=== PATIENT | female | born 1980 | race Caucasian/White ===

== ENCOUNTER → 2023-07-29 09:24 | Outpatient (REF) | payer OTHER, SELFPAY | LOC: WDC 09:24 | PROVIDERS: ATTENDING PHYSICIAN Nurse Practitioner Adult Health; FAMILY PHYSICIAN Family Medicine | DX: Z12.31 Encounter for screening mammogram for malignant neoplasm of breast (principal) | CPT/HCPCS: 77063; 77067 ==

== ENCOUNTER 2024-03-12 11:29 | Emergency (ER) | payer OTHER, SELFPAY ==
[2024-03-12 11:35] VITALS: BP 138/69
--- NOTE | 2024-03-12 11:39 | ED.PDOC.TRB ---
ED Provider Triage
-
Patient seen by provider in Triage?: Seen in Triage
Initial rapid assessment performed in triage to facilitate ED workup
43-year-old female presents upon referral from her primary care physician for evaluation of left lower quadrant pain ongoing for the past week. Pain is mild in nature but worsens with bowel movements. No fever, chills, sweats, nausea, vomiting, or
diarrhea. No history of similar pain. No prior abdominal surgeries
GEN: Well appearing, NAD, WDWN
HEENT: Oral mucosa moist, no scleral icterus
Cardiac: Regular rate
Lung: No respiratory distress, no tachypnea
MSK: No gross deformity or injuries
Skin: Good color, no pallor or jaundice, no rashes
Neuro: AO x3, moves all extremities freely
Psych: Calm, cooperative
Essman/plan: Suspect acute diverticulitis. She appears clinically stable and nonperitoneal. Will obtain labs and CT scan with IV contrast. TSH requested by pt's PCP
[2024-03-12 11:57] LABS: Urine Albumin Negative (Neg - Trace); Urine Bilirubin Negative (Negative); Urine Character Clear (Clear); Urine Color Yellow; Urine Glucose Negative (Negative); Urine Ketone Negative (Negative); Urine Leukocyte Negative (Negative); Urine Nitrite Negative (Negative); Urine Occult Blood Negative (Negative); Urine Specific Gravity 1.005 (<1.030); Urine Urobilinogen Negative (Neg - 1+)
[2024-03-12 12:02] LABS: % Basophils 0.5 % (0-2); % Eosinophils 0.7 % (0-6); % Immature Granulocytes 0.4 % (0-0.5); % Lymphocytes 13.3 % (20.5-51.1); % Monocytes 6.3 % (1.7-9.3); % Neutrophils 78.8 % (42.2-75.2); Absolute Eosinophils 0.1 10^3/uL (0-0.7); Absolute Lymphocytes 1.1 10^3/uL (1.2-3.4); Absolute Monocytes 0.5 10^3/uL (0.1-0.6); Absolute Neutrophils 6.7 10^3/uL (1.4-6.5); Hematocrit 38.9 % (37.0-47.0); Hemoglobin 12.9 g/dL (12.0-16.0); Mean Corp Hgb Conc. 33.2 g/dL (33.0-37.0); Mean Corpuscular Hgb 29.9 pg (27.0-31.0); Mean Corpuscular Volume 90.3 fL (81.0-99.0); Nucleated Red Blood Cells % 0 %; Platelet Count 258 10^3/uL (130-400); Red Blood Cell Count 4.31 10^6/uL (4.20-5.40); Red Cell Dist. Width 12.8 % (11.5-14.5); White Blood Cell Count 8.5 10^3/uL (4.8-10.8)
[2024-03-12 12:16] LABS: ALT (SGPT) 48 U/L (0-35); AST (SGOT) 37 U/L (14-36); Albumin 4.6 g/dl (3.5-5.0); Alkaline Phosphatase 100 U/L (38-126); Blood Urea Nitrogen 13 mg/dl (7-17); Calcium 9.3 mg/dl (8.4-10.2); Carbon Dioxide 24 mmol/L (22-30); Chloride 101 mmol/L (98-107); Glucose 98 mg/dl (70-99); Potassium 4.7 mmol/L (3.5-5.1); Sodium 138 mmol/L (135-145); Total Bilirubin 0.3 mg/dl (0.2-1.3); Total Protein 7.3 g/dl (6.3-8.2); eGFR > 60.00
[2024-03-12 13:12] LABS: TSH 0.62 uIU/ml (0.47-4.68)
[2024-03-12 13:25] LABS: HCG, Serum Qualitative Screen Negative
--- NOTE | 2024-03-12 14:04 | ED.GENMED ---
History of Present Illness
General
Chief Complaint: Abdominal Pain
Time Seen by Provider: 03/12/24 14:00
History of Present Illness
History of Present Illness:
43-year-old female presents to the emergency department for evaluation of lower abdominal pain predominantly left-sided for the past week. She also reports occasional diarrhea along with this. No fevers, chills, or sweats. Pain has worsened in
the past several days. No history of abdominal surgeries
Past History
Past History
ED Past Medical History: Seizures, Hypothyroidism and Psychiatric (depression)
ED Past Surgical History: Other (wisdom teeth)
Social History
Tobacco: Non-smoker
Alcohol: None
Personal:
Living: with family
Employment: Employed
Family History
Family History: Negative Early CAD
Review of Systems
Review of Systems
Allergies reviewed?: Yes
All Other Systems: ROS reviewed and negative except as documented in HPI and ROS
Phy Exam
Physical Exam
Physical Exam:
GEN: Well appearing, NAD, WDWN
HEENT: Oral mucosa moist, no scleral icterus
Cardiac: Regular rate
Lung: No respiratory distress, no tachypnea
Abdomen: Soft, moderate tenderness in the suprapubic and left lower quadrant, no peritoneal signs
MSK: No gross deformity or injuries
Skin: Good color, no pallor or jaundice, no rashes
Neuro: AO x3, moves all extremities freely
Psych: Calm, cooperative
Course
Orders/Labs/Results
Orders:
Orders
03/12/24 11:37
CT Abd/Pel (IV only)-DH only Urgent
Comment:
Reason For Exam: LLQ pain
03/12/24 11:46
Complete Blood Count/With Diff Urgent
Comprehensive Metabolic Panel Urgent
HCG, Serum Qualitative Screen Urgent
Comment: ADD ON
TSH Urgent
Urinalysis Reflex To Culture Urgent
Date Specimen was Collected: 03/12/24
Time Specimen was Collected: 11:39
03/12/24 12:27
Ketorolac [Toradol] 30 mg IM NOW STA
03/12/24 12:59
Add On- LAB Urgent
Tests Added?: hcg serum
Abnormal Lab Results
03/12/24
11:46
Absolute Neuts (auto) 6.7 H 10^3/uL
(1.4-6.5)
Absolute Lymphs (auto) 1.1 L 10^3/uL
(1.2-3.4)
Neutrophils % 78.8 H %
(42.2-75.2)
Lymphocytes % 13.3 L %
(20.5-51.1)
AST 37 H U/L
(14-36)
ALT 48 H U/L
(0-35)
03/12/24 11:46
03/12/24 11:46
Vital Signs
Initial and Last Documented VS:
Initial Vital Signs
Temp Pulse Resp BP Pulse Ox
99.0 F 69 18 138/69 99
03/12/24 11:35 03/12/24 11:35 03/12/24 11:35 03/12/24 11:35 03/12/24 11:35
Last Documented Vital Signs
Temp Pulse Resp BP Pulse Ox
99.0 F 69 18 138/69 99
03/12/24 11:35 03/12/24 11:35 03/12/24 11:35 03/12/24 11:35 03/12/24 11:35
MDM/Problems Addressed
MDM/Problems Addressed:
Imaging reveals findings suspicious with findings for a ruptured ovarian cyst. No evidence for bowel pathology. Discussed further supportive care. Labs and urinalysis reassuring
*Critical Care Note
Total Time (30-74mins, 75-104mins- exclusive of procedures): Not Applicable
ED Attending Note
-
Portions of this chart may have been created with voice recognition software.� Occasional wrong word or��sound alike� substitutions may have occurred due to the inherent limitations of voice recognition software.
Discharge Plan
Departure
Patient Disposition: Home (Routine Discharge)
Date of Disposition: 03/12/24
Time of Disposition: 14:04
Patient with high blood pressure during this ER visit?: No
Discharge Problem:
Rupture of ovarian cyst
Instructions: Ovarian Cyst (DC)
Prescriptions:
No Action
oxcarbazepine [Trileptal] 300 MG tablet
2 tab PO TID
levothyroxine [Synthroid] 25 MCG tablet
25 mcg PO DAILY
Lactobacillus rhamnosus GG 1 EACH capsule
1 ea PO DAILY
fluoxetine 20 MG capsule
40 mg PO DAILY
vitamin B complex [Neurodep] 1 CAP capsule
1 cap PO DAILY
cholecalciferol (vitamin D3) [Vitamin D3] 2,000 UNIT tablet
4,000 unit PO DAILY
acetaminophen 325 MG tablet
650 mg PO Q4HPRN PRN (Reason: pain)
ketotifen fumarate [Allergy Eye (ketotifen)] 10 ML drops
10 ml OP DAILYPRN PRN (Reason: itchy eyes)
vit [id number] D3-calc cit-Zn 1 EACH capsule
1 cap PO DAILY
tolvaptan 15 MG tablet
0.25 mg PO DAILY
omega 1-dys-jbn-fish oil [Fish Oil] 1 EACH capsule
1 ea PO DAILY
tolvaptan 15 MG tablet
15 mg PO DAILY Qty: 5 0RF
Rx Instructions:
Take one half tablet daily.
Activity Restrictions/Additional Instructions:
Follow up with your [employer] if pain persists
Your CT scan shows no evidence of bowel/gastrointestinal problems
Interventions
Interventions:
*Nursing Disposition Last Done: 03/12/24 14:20
Discharge Date and Time
Discharge Date/Time: 03/12/24 14:21
Print Language: MONGOLIAN
== END 2024-03-12 14:21 | disposition home or self-care (01) ==
LOC: EMR 11:29
PROVIDERS: Physician Assistant; EMERGENCY PHYSICIAN Emergency Medicine; FAMILY PHYSICIAN Family Medicine
DX: R10.32 Left lower quadrant pain (principal); R19.7 Diarrhea, unspecified; N83.209 Unspecified ovarian cyst, unspecified side; E03.9 Hypothyroidism, unspecified; F32.A Depression, unspecified; R56.9 Unspecified convulsions; Z88.0 Allergy status to penicillin; Z88.2 Allergy status to sulfonamides; Z88.8 Allergy status to other drugs, medicaments and biological substances; Z91.040 Latex allergy status
CPT/HCPCS: 99284; 74177; 80053; 81003; 84443; 84703; 85025; Q9967